=== PATIENT | male | born 1940 | race Caucasian/White ===

== ENCOUNTER 2020-05-29 18:13 | Emergency (ER) | payer MEDICARE ==
[~2020-05-29 18:13] MED LIST: 3IN1 COMMODE; ALDACTONE25 MG PO; AMARYL2 MG PO; ARICEPT 5MG TABL5 MG PO; BUMETANIDE1 MG PO; BUMETANIDE2 MG PO; BUMEX1 MG PO; CARDIZEM CD180 MG PO; CARDIZEM CD240 MG PO; CARTIA XT120 MG PO; CEFDINIR300 M1 PO; CIPRO500 MG PO; COLACE100 MG PO; COREG 3.125M3.125 MG PO; COUMADIN 2.5MG2.5 MG PO; COUMADIN 5MG TAB5 MG PO; COUMADIN2.5 MG PO; COUMADIN5 MG PO; DIGITEK250 MC1 PO; FEOSOL325 MG PO; FLOMAX0.4 MG PO; LASIX20 MG PO; LIPITOR40 MG PO; LOPRESSOR50 MG PO; MAG-OXIDE 400M400 MG PO; METFORMIN HCL500 M3 PO; MICRO-K10 MEQ PO; MIRALAX 238GM238 GM PO; NORVASC5 MG PO; OXYCODONE-ACET1 EAC1 PO; PROSCAR5 MG PO; PROTONIX 40MG T40 MG PO; SENOKOT8.6 MG PO; SEROQUEL 25MG T25 MG PO; TOPROL XL 50 MG50 MG PO; TOPROL XL25 MG PO; VIBRAMYCIN100 MG PO; [UNRECOGNIZED DRUG - OTHER]
[2020-05-29 19:16] LABS: BASOPHIL 0.4 % (0-2); EOSINOPHIL 1.2 % (0-7); HCT 40.7 % (42.0-52.0); HGB 12.3 g/dl (13.2-18.0); LYMPHOCYTE 14.1 % (15-48); MCH 29.1 pg (25.0-31.0); MCHC 30.2 g/dL (32.0-36.0); MCV 96.4 fL (78.0-100.0); MONOCYTE 10.3 % (0-12); NEUTROPHIL 73.2 % (41-80); NRBC 0; PLT 153 K/uL (150-400); RBC 4.22 M/uL (4.70-6.00); RDW 15.7 % (11.5-14.0); WBC 7.8 K/uL (4.0-10.5)
[2020-05-29 19:27] LABS: INR 3.16 (0.9-1.2); PROTHROMBIN TIME 30.9 SECONDS (11.4-13.6)
[2020-05-29 19:28] LABS: BUN/CREAT RATIO (CALC) 21.9 RATIO; CREATININE 1.69 mg/dL (0.67-1.17)
[2020-05-29 19:34] LABS: PTT 74.5 SECONDS (22.2-34.7)
[2020-05-29 19:37] LABS: POTASSIUM 4.6 mmol/L (3.5-5.1)
== END 2020-05-29 20:25 | disposition home or self-care (01) ==
LOC: FER 18:13
PROVIDERS: Emergency Medicine Emergency Medical Services
DX: S51.012A Laceration without foreign body of left elbow, initial encounter (principal); S00.03XA Contusion of scalp, initial encounter; I48.91 Unspecified atrial fibrillation; I10 Essential (primary) hypertension; Z23 Encounter for immunization; Z88.0 Allergy status to penicillin; W19.XXXA Unspecified fall, initial encounter; Y92.410 Unspecified street and highway as the place of occurrence of the external cause
CPT/HCPCS: 36415; 70450; 72125; 80048; 85025; 85610; 85730; 90471; 90715; 93005

== ENCOUNTER 2020-10-06 16:48 | Emergency (ER) | payer MEDICARE | END 2020-10-06 19:10 | disposition home or self-care (01) | LOC: FER 16:48 | DX: S40.011A Contusion of right shoulder, initial encounter (principal); M25.551 Pain in right hip; R41.3 Other amnesia; E11.9 Type 2 diabetes mellitus without complications; W19.XXXA Unspecified fall, initial encounter; Y92.009 Unspecified place in unspecified non-institutional (private) residence as the place of occurrence of the external cause | CPT/HCPCS: 70450 ==